=== PATIENT | female | born 1970 | race African-American/Black ===

== ENCOUNTER 2017-07-09 12:59 | Emergency (ER) | payer OTHER ==
[2017-07-09 13:04] VITALS: BP 130/84; PULSE 87; TEMP 98.9; BMI 28.5
[2017-07-09] MEDS ORDERED: KETOROLAC TROMETHAMINE 60 MG/2 ML VIAL IM ONE (14:07)
--- NOTE | 2017-07-09 14:08 | PDOC ---
History of Present Illness - General Chief Complaint: Pain Stated Complaint: LT ARM PAIN / LOWER BACK PAIN Time Seen by Provider: 07/09/17 13:33 History Source: Patient Exam Limitations: No Limitations - History of Present Illness Initial Comments: 07/09/17 17:46 My chief complaint left shoulder pain History of present illness: Patient is a 46-year-old female with a history of asthma here today complaining of severe pain to her left shoulder with movement. Patient reports that she woke yesterday with the pain to her left shoulder and was seen by her primary care provider who ordered Mobitz 15 mg by mouth daily. Patient reports that Mobitz did not decrease the pain. Patient denies any injury any pulling or lifting of any heavy items. Patient denies any neck pain or any radiation of pain down the arm. Patient had an x-ray done yesterday here that was negative for any bony abnormality of left shoulder. Occurred: reports: yesterday Severity: reports: severe (left shoulder ) Upper Extremity Pain Location: left: shoulder Extremity Pain Location - Extremity Pain Location Extremity Pain Locations: left: other (shoulder) Past History - Past Medical History Allergies/Adverse Reactions: Allergies Allergy/AdvReac Type Severity Reaction Status Date / Time No Known Allergies Allergy Verified 07/09/17 13:05 Home Medications: Ambulatory Orders Albuterol Sulfate Inhaler - [Ventolin HFA Inhaler -] 2 inh PO Q4H 07/09/17 Naproxen [Naprosyn -] 500 mg PO BID PRN #14 tablet 07/09/17 Asthma: Yes - Suicide/Smoking/Psychosocial Hx Smoking History: Never smoked Have you smoked in the past 12 months: Yes Hx Alcohol Use: No Drug/Substance Use Hx: No Review of Systems - Review of Systems Able to Perform ROS?: Yes Constitutional: No: Symptoms Reported HEENTM: No: Symptoms Reported Respiratory: No: Symptoms reported Cardiac (ROS): No: Symptoms Reported ABD/GI: No: Symptoms Reported Musculoskeletal: Yes: Joint Pain (left shoulder), Joint Swelling (shoulder) Integumentary: No: Symptoms Reported Neurological: No: Symptoms reported *Physical Exam - Vital Signs Last Vital Signs Temp Pulse Resp BP Pulse Ox 98.9 F 87 20 130/84 100 07/09/17 13:01 07/09/17 13:01 07/09/17 13:01 07/09/17 13:01 07/09/17 13:01 - Physical Exam General Appearance: Yes: Appropriately Dressed Respiratory/Chest: positive: Lungs Clear, Normal Breath Sounds. negative: Chest Tender, Respiratory Distress Cardiovascular: positive: Regular Rhythm, Regular Rate, S1, S2 Extremity: positive: Normal Capillary Refill, Normal Inspection, Tender (left shoulder). negative: Normal Range of Motion (left shoulder ) Integumentary: positive: Normal Color Neurologic: positive: Alert, Normal Response, Respond to painful stimul, Responsive. negative: Motor Strength 5/5 (left shoulder ), Numbness, Sensory Deficit Medical Decision Making - Medical Decision Making 07/09/17 14:25 Patient is a 46-year-old female with a history of asthma here today complaining of severe pain to her left shoulder with movement. Patient reports that she woke yesterday with the pain to her left shoulder and was seen by her primary care provider who ordered Mobitz 15 mg by mouth daily. Patient reports that Mobitz did not decrease the pain. Patient denies any injury any pulling or lifting of any heavy items. Patient denies any neck pain or any radiation of pain down the arm. Patient had an x-ray done yesterday here that was negative for any bony abnormality of left shoulder. LEFT SHOULDER PAIN PLAN: toradol 60 mg IM left shoulder immoblizer Follow up with ortho Naprosyn 500 mg bid prn X 14 tabs PT TO STOP MOBIC 07/09/17 17:47 *DC/Admit/Observation/Transfer Diagnosis at time of Disposition: Shoulder pain, left Qualifiers: Chronicity: acute Qualified Code(s): M25.512 - Pain in left shoulder - Discharge Dispostion Disposition: HOME Condition at time of disposition: Stable - Prescriptions Prescriptions: Naproxen [Naprosyn -] 500 mg PO BID PRN #14 tablet PRN Reason: Pain - Referrals Referrals: Abida Miranda MD [Primary Care Provider] - Ibrahima Fisher MD [Staff Physician] - Brain Roberts MD [Staff Physician] - - Patient Instructions Additional Instructions: Avoid any strenuous activities or exercise Leave on shoulder immoblizer during the day take off at night You must follow up with orthopedist tomorrow for further evaluation Return to emergency room if symptoms worsen STOP MELOXICAM Patient voiced understanding of discharge instructions and all questions were answered Thank you for choosing [facility] for your medical needs - Post Discharge Activity Forms/Work/School Notes: Back to Work
[2017-07-09] MEDS ORDERED: KETOROLAC TROMETHAMINE 30 MG/1 ML VIAL ONE (14:10)
== END 2017-07-09 14:53 | disposition home or self-care (01) ==
LOC: JERFT 12:59
PROC: 3E0233Z Introduction of Anti-inflammatory into Muscle, Percutaneous Approach (ICD-10-PCS; principal; 2017-07-09)
PROC: 2W3DX1Z Immobilization of Left Lower Arm using Splint (ICD-10-PCS; 2017-07-09)
DX: M25.512 Pain in left shoulder (principal)
CPT/HCPCS: 29125; 96372; 99281-25

== ENCOUNTER 2018-12-08 21:12 | Emergency (ER) | payer OTHER ==
--- NOTE | 2018-12-08 21:24 | PDOC ---
Rapid Medical Evaluation Chief Complaint: Pain Time Seen by Provider: 12/08/18 21:23 Medical Evaluation: Allergies Allergy/AdvReac Type Severity Reaction Status Date / Time No Known Allergies Allergy Verified 07/09/17 13:05 12/08/18 21:23 I have performed a brief in person evaluation of this patient. CC: Left shoulder pain HPI: Pt is a 48 YO female who complains of right shoulder pain. Denies injury/ trauma PE: Skin: Clear Lungs: Clear Heart:RRR MS: Pain upon palpation to the left shoulder Neuro: Alert and oriented Psych: Appropriate affect I have ordered the following: left shoulder xray at request of patient Pt will proceed to [facility] for further evaluation. 12/08/18 21:24 Discharge Disposition - Diagnosis Shoulder pain, right Qualifiers: Chronicity: acute Qualified Code(s): M25.511 - Pain in right shoulder - Referrals - Patient Instructions - Post Discharge Activity
[2018-12-08 21:26] VITALS: BP 129/69; PULSE 71; TEMP 98.4; BMI 28.2
[2018-12-08] MEDS ORDERED: KETOROLAC TROMETHAMINE 60 MG/2 ML VIAL IM ONE (21:42)
[2018-12-08] MEDS ORDERED: KETOROLAC TROMETHAMINE 60 MG/2 ML VIAL ONE (21:43)
--- NOTE | 2018-12-08 21:44 | PDOC ---
History of Present Illness - General Chief Complaint: Pain Stated Complaint: UNABLE TO MOVE ARM/LEFT Time Seen by Provider: 12/08/18 21:23 - History of Present Illness Initial Comments: 12/08/18 21:42 48-year-old female with a past medical history significant for asthma presents for evaluation of 2 days of atraumatic right shoulder pain. She has no systemic symptoms. Past History - Past Medical History Allergies/Adverse Reactions: Allergies Allergy/AdvReac Type Severity Reaction Status Date / Time No Known Allergies Allergy Verified 12/08/18 21:25 Home Medications: Ambulatory Orders Ibuprofen [Motrin -] 600 mg PO TID #30 tablet 12/08/18 Asthma: Yes COPD: No - Suicide/Smoking/Psychosocial Hx Smoking History: Current every day smoker Have you smoked in the past 12 months: Yes Number of Cigarettes Smoked Daily: 7 Information on smoking cessation initiated: No Hx Alcohol Use: No Drug/Substance Use Hx: No Review of Systems - Review of Systems Constitutional: No: Fever Musculoskeletal: Yes: Joint Pain *Physical Exam - Vital Signs Last Vital Signs Temp Pulse Resp BP Pulse Ox 98.4 F 71 18 129/69 100 12/08/18 21:23 12/08/18 21:23 12/08/18 21:23 12/08/18 21:23 12/08/18 21:23 - Physical Exam Comments: 12/08/18 21:43 Right shoulder skin color and temperature are normal. She stands with her shoulder height, she resists range of motion. She has diffuse tenderness. No pain with passive internal and external rotation. She has no gross sensorimotor deficits she is neurovascularly intact. Unable to tolerate stability or supraspinatus isolation test Moderate Sedation - Procedure Monitoring Vital Signs: Procedure Monitoring Vital Signs Temperature 98.4 F 12/08/18 21:23 Pulse Rate 71 12/08/18 21:23 Respiratory Rate 18 12/08/18 21:23 Blood Pressure 129/69 12/08/18 21:23 O2 Sat by Pulse Oximetry (%) 100 12/08/18 21:23 *DC/Admit/Observation/Transfer Diagnosis at time of Disposition: Adhesive capsulitis of right shoulder Shoulder pain, right Qualifiers: Chronicity: acute Qualified Code(s): M25.511 - Pain in right shoulder - Discharge Dispostion Disposition: HOME Condition at time of disposition: Stable Decision to Admit order: No - Prescriptions Prescriptions: Ibuprofen [Motrin -] 600 mg PO TID #30 tablet - Referrals Referrals: Mike Pratt DO [Staff Physician] - - Patient Instructions Printed Discharge Instructions: Frozen Shoulder, DI for Frozen Shoulder Additional Instructions: Please take the anti-inflammatory as directed. One tablet 3 times a day with food. Please started tomorrow. Follow-up with orthopedic surgery in 2-3 days for further evaluation and treatment options. Return to the emergency room for worsening of symptoms. Tylenol if she needs something additional for pain. - Post Discharge Activity
== END 2018-12-08 22:06 | disposition home or self-care (01) ==
LOC: JERFT 21:12
PROC: 3E0233Z Introduction of Anti-inflammatory into Muscle, Percutaneous Approach (ICD-10-PCS; principal; 2018-12-08)
DX: M75.01 Adhesive capsulitis of right shoulder (principal)
CPT/HCPCS: 73030-TC-RT-FY; 96372; 99281-25

== ENCOUNTER 2020-12-10 05:03 | Emergency (ER) | payer SELFPAY ==
[2020-12-10 05:26] VITALS: BP 133/72; PULSE 76; TEMP 98.6; BMI 29.0
[2020-12-10] MEDS ORDERED: ACETAMINOPHEN 500 MG TABLET (FP) PO ONE (05:40)
[2020-12-10] MEDS ORDERED: ACETAMINOPHEN 500 MG TABLET (FP) ONE (05:45)
[2020-12-10] MEDS ORDERED: METHOCARBAMOL 500 MG TABLET PO ONE (05:49)
[2020-12-10] MEDS ORDERED: LIDOCAINE 5% TOPICAL PATCH TP ONE (05:49)
[2020-12-10] MEDS ORDERED: METHOCARBAMOL 500 MG TABLET ONE (06:09)
[2020-12-10] MEDS ORDERED: LIDOCAINE 5% TOPICAL PATCH ONE (06:09)
[2020-12-10] MEDS ORDERED: LIDOCAINE PATCH REMOVAL MC SCH (22:00)
== END 2020-12-10 06:39 | disposition home or self-care (01) ==
LOC: JER 05:03
DX: R07.89 Other chest pain (principal)
CPT/HCPCS: 71101-TC-LT-FY; 99283-25